=== PATIENT | female | born 1980 | race Caucasian/White ===

== ENCOUNTER 2020-01-04 17:33 | Emergency (ER) | payer SELFPAY ==
--- NOTE | 2020-01-04 17:46 | ER Document Report ---
ED Medical Screen (RME) - General Chief Complaint: Vaginal Bleeding Stated Complaint: HEAVY VAGINAL BLEEDING Time Seen by Provider: 01/04/20 17:42 Primary Care Provider: TONY YOST MD [Primary Care Provider] - Follow up as needed Notes: 39-year-old female presents with vaginal bleeding that started yesterday. Patient states she is not due for her period until the . Patient states she usually has her period pretty consistently every month and they last approximately a week. Patient denies any fevers, chills, nausea/vomiting, abdominal pain. Patient does states she has a headache. Patient also states she has some dizziness/lightheadedness but states this is what she usually has every day and is not different than her usual. Abdomen soft nontender. I have greeted and performed a rapid initial assessment of this patient. A comprehensive ED assessment and evaluation of the patient, analysis of test results and completion of the medical decision making process with be conducted by additional ED providers. - Related Data Allergies/Adverse Reactions: No Known Allergies Allergy (Verified 01/04/20 17:41) Past Medical History - Past Medical History Cardiac Medical History: Denies: Hx Coronary Artery Disease, Hx Heart Attack, Hx Hypertension Pulmonary Medical History: Denies: Hx Asthma, Hx Bronchitis, Hx COPD, Hx Pneumonia Neurological Medical History: Denies: Hx Cerebrovascular Accident, Hx Seizures Musculoskeltal Medical History: Denies Hx Arthritis Past Surgical History: Denies: Hx Hysterectomy - Immunizations Hx Diphtheria, Pertussis, Tetanus Vaccination: No Physical Exam - Vital signs Vitals: Temp Pulse BP Pulse Ox 98.3 F 101 H 148/93 H 99 01/04/20 17:40 01/04/20 17:40 01/04/20 17:40 01/04/20 17:40 Course - Vital Signs Vital signs: Temp Pulse Resp BP Pulse Ox 98.3 F 101 H 148/93 H 99 01/04/20 17:40 01/04/20 17:40 01/04/20 17:40 01/04/20 17:40 Doctor's Discharge - Discharge Referrals: TONY YOST MD [Primary Care Provider] - Follow up as needed
[2020-01-04 18:27] LABS: ABSOLUTE EOSINOPHILS # (AUTO) 0.1 10^3/uL (0.0-0.6); ABSOLUTE LYMPHOCYTES (AUTO) 2.1 10^3/uL (0.5-4.7); ABSOLUTE MONOCYTES (AUTO) 0.8 10^3/uL (0.1-1.4); ABSOLUTE NEUT (AUTO) 5.9 10^3/uL (1.7-8.2); BASOPHILS % (AUTO) 0.4 % (0-2); EOSINOPHILS % (AUTO) 0.8 % (0-6); HEMATOCRIT 37.4 % (36.0-47.0); HEMOGLOBIN 11.9 g/dL (12.0-15.5); LYMPHOCYTES % (AUTO) 23.3 % (13-45); MEAN CORPUSCULAR HEMOGLOBIN 22.9 pg (27.0-33.4); MEAN CORPUSCULAR HGB CONC 31.8 g/dL (32.0-36.0); MEAN CORPUSCULAR VOLUME 72 fl (80-97); MONOCYTES % (AUTO) 8.7 % (3-13); PLATELET COUNT 418 10^3/uL (150-450); RED BLOOD COUNT 5.18 10^6/uL (3.72-5.28); RED CELL DISTRIBUTION WIDTH 16.9 % (11.5-14.0); SEGMENTED NEUTROPHILS % (AUTO) 66.8 % (42-78); TOTAL CELLS COUNTED % (AUTO) 100 %; WHITE BLOOD COUNT 8.9 10^3/uL (4.0-10.5)
[2020-01-04 18:37] LABS: APPEARANCE,URINE SLIGHTLY-CLOUDY; BILIRUBIN,URINE NEGATIVE (NEGATIVE); COLOR,URINE YELLOW; GLUCOSE, URINE NEGATIVE (NEGATIVE); KETONES,URINE NEGATIVE (NEGATIVE); PROTEIN,URINE 100 mg/dL (NEGATIVE); URINE SPECIFIC GRAVITY 1.026; UROBILINOGEN,URINE NEGATIVE mg/dL (<2.0)
[2020-01-04 18:48] LABS: ALBUMIN 4.6 g/dL (3.5-5.0); ALKALINE PHOSPHATASE 81 U/L (38-126); ANION GAP 11 (5-19); ASPARTATE AMINO TRANSFERASE 20 U/L (14-36); BILIRUBIN,TOTAL 0.5 mg/dL (0.2-1.3); BLOOD UREA NITROGEN 11 mg/dL (7-20); CALCIUM 9.3 mg/dL (8.4-10.2); CARBON DIOXIDE 25 mmol/L (22-30); CHLORIDE 103 mmol/L (98-107); GLUCOSE 94 mg/dL (75-110); POTASSIUM 3.9 mmol/L (3.6-5.0); TOTAL PROTEIN 8.2 g/dL (6.3-8.2)
--- NOTE | 2020-01-04 19:25 | ER Document Report ---
ED General - General Chief Complaint: Vaginal Bleeding Stated Complaint: HEAVY VAGINAL BLEEDING Time Seen by Provider: 01/04/20 17:42 Primary Care Provider: TONY YOST MD [Primary Care Provider] - Follow up as needed TRAVEL OUTSIDE OF THE [place] IN LAST 30 DAYS: No - HPI Notes: Ms. Pimentel is a 39-year-old female 4 para 3 AB 1 greater than 5 years status post BTL with a chief complaint of abnormal vaginal bleeding. Patient reports that she had what she felt was a normal menstrual period on the of last month. Yesterday she began having some spotting and today she has had bleeding more similar to her usual menstrual period. She denies fever, chills, dysuria, back pain, abdominal pain, pelvic cramping nausea or vomiting. Patient denies past surgery. No current medications. No known allergies. Consumes rare social alcohol. Non-smoker. - Related Data Allergies/Adverse Reactions: No Known Allergies Allergy (Verified 01/04/20 17:41) Past Medical History - General Information source: Patient, Relative Last Menstrual Period: 12/22/19 - Social History Smoking Status: Never Smoker Chew tobacco use (# tins/day): No Frequency of alcohol use: Social Drug Abuse: None Lives with: Family Family History: Reviewed & Not Pertinent Patient has suicidal ideation: No Patient has homicidal ideation: No - Past Medical History Cardiac Medical History: Denies: Hx Coronary Artery Disease, Hx Heart Attack, Hx Hypertension Pulmonary Medical History: Denies: Hx Asthma, Hx Bronchitis, Hx COPD, Hx Pneumonia Neurological Medical History: Denies: Hx Cerebrovascular Accident, Hx Seizures Musculoskeletal Medical History: Denies Hx Arthritis Past Surgical History: Reports: Hx Tubal Ligation. Denies: Hx Hysterectomy - Immunizations Hx Diphtheria, Pertussis, Tetanus Vaccination: No Review of Systems - Review of Systems Notes: Constitutional: Negative for fever. HENT: Negative for sore throat. Eyes: Negative for visual changes. Cardiovascular: Negative for chest pain. Respiratory: Negative for shortness of breath. Gastrointestinal: Negative for abdominal pain, vomiting or diarrhea. Genitourinary: As per HPI. Musculoskeletal: Negative for back pain. Skin: Negative for rash. Neurological: Negative for headaches, weakness or numbness. 10 point ROS negative except as marked above and in HPI. Physical Exam - Vital signs Vitals: Temp Pulse BP Pulse Ox 98.3 F 101 H 148/93 H 99 01/04/20 17:40 01/04/20 17:40 01/04/20 17:40 01/04/20 17:40 - Notes Notes: GENERAL: Well-developed well-nourished appearing in no acute distress. SKIN: Good turgor no rashes. HEAD: Normocephalic atraumatic. EYES: PERRLA. EOMI. Conjunctivae and sclerae clear. EARS: CANALS AND TMS CLEAR. NOSE: CLEAR. MOUTH: Moist mucosa. Good dentition. No stridor or edema. No drooling. NECK: Supple. No masses or thyromegaly. No adenopathy. Carotids 2+ without bruits. No JVD. BACK: Symmetrical without tenderness. CHEST: Respirations unlabored. Breath sounds clear and symmetrical. HEART: Regular rhythm. No murmur gallop or rub. ABDOMEN: Soft nontender without masses, organomegaly or rebound. Bowel sounds normally active. No bruits. GENITALIA: Deferred. EXTREMITIES: No edema. No calf tenderness. Cap refill less than 1.5 seconds. Dorsalis pedis and posterior tibial pulses 3+ and symmetrical. NEUROLOGICAL: GCS 15. Alert and oriented x3. Normal gait. Fluent speech. Cranial nerves II through XII intact. Sensorimotor and cerebellar normal. Normal tone. PSYCHIATRIC: Appropriate affect. Course - Re-evaluation Re-evalutation: 01/04/20 20:16 This lady appears to have dysfunctional uterine bleeding. 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 - Vital Signs Vital signs: Temp Pulse Resp BP Pulse Ox 98.3 F 101 H 148/93 H 99 01/04/20 17:40 01/04/20 17:40 01/04/20 17:40 01/04/20 17:40 - Laboratory Result Diagrams: 01/04/20 17:58 01/04/20 17:58 Laboratory results interpreted by me: 01/04/20 01/04/20 17:58 17:58 Hgb 11.9 L MCV 72 L MCH 22.9 L MCHC 31.8 L RDW 16.9 H Urine Protein 100 H Urine Blood LARGE H Leukocyte Esterase Rfl TRACE H - Diagnostic Test Radiology reviewed: Reports reviewed - Large simple cyst of the right ovary with no other obvious abnormalities per radiologist. Discharge - Discharge Clinical Impression: Dysfunctional uterine bleeding Condition: Stable Disposition: HOME, SELF-CARE Additional Instructions: Dysfunctional Uterine Bleeding You're having an abnormal pattern of bleeding from the uterus. We call this dysfunctional uterine bleeding. It is most often caused by a hormone imbalance. Most often this is temporary and no cause is found. There's no evidence of , tumors, or infection as a cause. Dysfunctional uterine bleeding is especially common at times when the tayo l menstrual cycle is disturbed -- whether by recent , use of control pills or hormones, or impending menopause. Some medical problems lead to dysfunctional bleeding, such as obesity or being very underweight, stress, or thyroid problems. In many cases, the menstrual cycle will return to normal without any treatment. Where the bleeding is significant, high-dose estrogen will usually stop the bleeding within a day of two. A cycle or two of hormones ( control pills) can help restore the uterus to normal. In some patients where bleeding is severe or resistant to treatment, a D&C is required. A endometrial biopsy (a sample of the inside of the uterus) may be recomme nded for some older women. This would be done by a gynecology specialist. Treatment for anemia may be required if bleeding is severe. You should rest and avoid intercourse until the bleeding is controlled. Call the doctor or return for re-examination if you feel faint, have increasing pain, or have a major increase in the amount of bleeding. Return here as needed for new or worsening symptoms: Pain that is worsening or unimproved Uncontrolled vomiting High fever or shaking chills Overall worsening Prescriptions: Medroxyprogesterone Acet [Provera 10 Mg Tablet] 10 mg PO BID 5 Days #10 tablet Referrals: TNOY YOST MD [Primary Care Provider] - Follow up as needed
--- NOTE | 2020-01-04 19:58 | RADIOLOGY REPORT (SQ) ---
EXAM DESCRIPTION: U/S NON OB PEL TV W/DOPPLER COMPLETED DATE/TIME: 01/04/2020 6:26 pm REASON FOR STUDY: heavy vaginal bleeding. G0, P0. LMP 12/22/2019. COMPARISON: None. TECHNIQUE: Dynamic and static grayscale images acquired of the pelvis via transvaginal approach and recorded on PACS. Additional selected color Doppler and spectral images recorded. LIMITATIONS: None. FINDINGS: UTERUS: The uterus is retroverted. There is a round hypoechoic mass in the uterine body m easuring 1.8 x 1.1 x 1 cm. ENDOMETRIAL STRIPE: No focal or generalized endometrial thickening. No abnormal fluid within the en dometrial canal. CERVIX: No nabothian cysts. RIGHT OVARY AND DOPPLER: Normal size. There is a large simple cyst involving the right ovary measuri ng 6.4 x 4.4 x 3.6 cm. No internal nodularity or septations. No worrisome solid mass. Normal arteri al vascular flow without evidence for torsion. LEFT OVARY AND DOPPLER: Normal size. No worrisome masses. Normal arterial vascular flow without evide nce for torsion. FREE FLUID: None noted. OTHER: No other significant finding. MEASUREMENTS: UTERUS: 7.8 x 4.1 x 5.5 cm ENDOMETRIAL STRIPE: 4 mm RIGHT OVARY: 7.1 x 5 x 4.2 cm LEFT OVARY: 3.7 x 1.7 x 2.5 cm IMPRESSION: 1. Large simple cyst involving the right ovary probably a functional or nonfunctional ovarian follicl e. 2. No sonographic abnormality of the uterus or left ovary. TECHNICAL DOCUMENTATION: JOB ID: [id number] [employer]- All Rights Reserved Rev Reading location - IP/workstation name: [email or web address]
[2020-01-04 20:33] VITALS: BP 114/67
== END 2020-01-04 20:32 | disposition home or self-care (01) ==
LOC: ER 17:33
DX: N93.8 Other specified abnormal uterine and vaginal bleeding (principal); Z98.51 Tubal ligation status
CPT/HCPCS: 36415; 76830; 80053; 81001; 84703; 85025; 87086; 93976; 99284

== ENCOUNTER 2020-08-23 13:09 | Emergency (ER) | payer SELFPAY ==
[2020-08-23 13:14] VITALS: BP 134/90
--- NOTE | 2020-08-23 13:31 | ER Document Report ---
HPI - HPI Patient complains to provider of: Left foot and toe pain Time Seen by Provider: 08/23/20 13:14 Pain Level: 2 Notes: 39-year-old female to the emergency department with complaints of left pinky toe and forefoot pain that began last night when she bumped it on the side of her bathroom wall. She states that it is been bruising and is painful. She did sang tape it last night and took some ibuprofen. She denies any other injuries. - CONSTITUTIONAL Constitutional: DENIES: Fever, Chills - EENT EENT: DENIES: Sore Throat, Ear Pain - NEURO Neurology: DENIES: Headache - CARDIOVASCULAR Cardiovascular: DENIES: Chest pain - RESPIRATORY Respiratory: DENIES: Trouble Breathing, Coughing - GASTROINTESTINAL Gastrointestinal: DENIES: Abdominal Pain, Nausea, Patient vomiting - MUSCULOSKELETAL Musculoskeletal: REPORTS: Extremity pain - Pinky and foot pain - DERM Skin Color: Ecchymosis - Ecchymosis to the left foot Past Medical History - General Information source: Patient - Social History Smoking Status: Former Smoker Frequency of alcohol use: None Drug Abuse: None Family History: Reviewed & Not Pertinent - Past Medical History Cardiac Medical History: Denies: Hx Coronary Artery Disease, Hx Heart Attack, Hx Hypertension Pulmonary Medical History: Denies: Hx Asthma, Hx Bronchitis, Hx COPD, Hx Pneumonia Neurological Medical History: Denies: Hx Cerebrovascular Accident, Hx Seizures Musculoskeletal Medical History: Denies Hx Arthritis Past Surgical History: Reports: Hx Tubal Ligation. Denies: Hx Hysterectomy - Immunizations Hx Diphtheria, Pertussis, Tetanus Vaccination: No Vertical Provider Document - CONSTITUTIONAL Agree With Documented VS: Yes Exam Limitations: No Limitations General Appearance: WD/WN - INFECTION CONTROL TRAVEL OUTSIDE OF THE [place] IN LAST 30 DAYS: No - HEENT HEENT: Atraumatic, Normocephalic, PERRLA - NECK Neck: Normal Inspection, Supple - RESPIRATORY Respiratory: Breath Sounds Normal, No Respiratory Distress - CARDIOVASCULAR Cardiovascular: Regular Rate, Regular Rhythm, No Murmur - GI/ABDOMEN Gastrointestinal: Abdomen Soft, Abdomen Non-Tender - MUSCULOSKELETAL/EXTREMETIES Notes: Patient can wiggle all toes. Dorsi flexion and plantar flexion are 5 out of 5 in strength against resistance in bilateral lower feet. There is tenderness to palpation to the left pinky toe and to the left head of the metatarsal. There is noted edema and ecchymosis here as well. No gross deformity. Cap refill in all toes is less than 2 seconds. DP pulses are intact and equal. Nontender to palpation of the left midfoot and hindfoot as well as the ankle knee and hip. - NEURO Level of Consciousness: Awake, Alert Motor/Sensory: No Motor Deficit, No Sensory Deficit - DERM Integumentary: Warm Course - Re-evaluation Re-evalutation: 08/23/20 13:50 Impression: Left pinky toe proximal phalanx fracture. Will place patient in sang tape and postop shoe. We will have her follow-up with orthopedist. We will send home with pain medicine. Patient requests some antinausea medicine that sometimes for medicine makes her queasy. Encouraged to return if any worsening symptoms. Encouraged icing the foot. Patient agrees with the plan. - Vital Signs Vital signs: Temp Pulse Resp BP Pulse Ox 98.4 F 97 18 134/90 H 100 08/23/20 13:13 08/23/20 13:13 08/23/20 13:13 08/23/20 13:13 08/23/20 13:13 - Diagnostic Test Radiology reviewed: Image reviewed Radiology results interpreted by me: 08/23/20 13:50 Proximal toe fracture of the left pinky toe Procedures - Immobilization Left Toe Time completed: 13:49 Pre-Proc Neuro Vasc Exam: Normal Immobilizer type: Post-op shoe, Other - sang tape Performed by: PCT Post-Proc Neuro Vasc Exam: Normal Alignment checked and good: Yes Discharge - Discharge Clinical Impression: Toe pain, left Toe fracture, left Qualifiers: Encounter type: initial encounter Toe: lesser toe Fracture type: closed Phalanx: proximal Fracture alignment: nondisplaced Qualified Code(s): S92.515A - Nondisplaced fracture of proximal phalanx of left lesser toe(s), initial encounter for closed fracture Condition: Stable Disposition: HOME, SELF-CARE Instructions: Fractured Toe ([facility]) Additional Instructions: Keep toe sang taped. Wear postop shoe. Follow-up with orthopedist. Use pain medicine as prescribed. Prescriptions: Ibuprofen [Motrin 600 mg Tablet] 600 mg PO Q8HP PRN #24 tablet PRN Reason: Acetaminophen with Codeine [Tylenol #3 Tablet] 1 each PO Q6H PRN #6 tablet PRN Reason: Ondansetron [Zofran Odt 4 mg Tablet] 1 - 2 tab PO Q4H PRN #15 tab.rapdis PRN Reason: For Nausea/Vomiting Referrals: CALLIE LAFLEUR DO [Primary Care Provider] - Follow up in 1 week CARLOS MARVIN JR, DO [ACTIVE PROVISIONAL STAFF] - Follow up in 1 week (for orthopedic follow up)
--- NOTE | 2020-08-23 13:53 | RADIOLOGY REPORT (SQ) ---
EXAM DESCRIPTION: FOOT LEFT COMPLETE IMAGES COMPLETED DATE/TIME: 08/23/2020 1:37 pm REASON FOR STUDY: foot/toe injury, bruising COMPARISON: None. EXAM PARAMETERS: NUMBER OF VIEWS: Three views. TECHNIQUE: AP, lateral and oblique radiographic images acquired of the left foot. LIMITATIONS: None. FINDINGS: MINERALIZATION: Normal. BONES: Oblique diaphyseal fracture of the 5th proximal phalanx with 2 mm lateral displacement and min imal valgus angulation. JOINTS: No effusion. SOFT TISSUES: Mild soft tissue swelling. No radiopaque foreign body. OTHER: No other significant finding. IMPRESSION: Oblique diaphyseal fracture of the 5th proximal phalanx with 2 mm lateral displacement a nd minimal valgus angulation. TECHNICAL DOCUMENTATION: JOB ID: [id number] [employer]- All Rights Reserved Reading location - IP/workstation name: [email or web address]
== END 2020-08-23 14:06 | disposition home or self-care (01) ==
LOC: ER 13:09
DX: S92.515A Nondisplaced fracture of proximal phalanx of left lesser toe(s), initial encounter for closed fracture (principal); M79.672 Pain in left foot; M79.675 Pain in left toe(s); W22.8XXA Striking against or struck by other objects, initial encounter; Z87.891 Personal history of nicotine dependence
CPT/HCPCS: 99284